=== PATIENT | female | born 1995 | race Caucasian/White ===

== ENCOUNTER 2020-11-05 18:36 | Emergency (ER) | payer SELFPAY ==
[2020-11-05 20:16] LABS: BILIRUBIN NEGATIVE (NEGATIVE); BLOOD NEGATIVE Ery/uL (NEGATIVE); CLARITY CLEAR (CLEAR); COLOR YELLOW (YELLOW); GLUCOSE (U) NORMAL (NORMAL); LEUKOCYTES NEGATIVE Leu/uL (NEGATIVE); NITRITE NEGATIVE (NEGATIVE); PROTEIN NEGATIVE (NEGATIVE); SPECIFIC GRAVITY 1.015 (1.001-1.030); UROBILINOGEN 0.2 mg/dL (0.2-1.0); pH 6.5 (5.0-9.0)
[2020-11-05 20:33] LABS: BASOPHIL 0.4 % (0-2); EOSINOPHIL 1.1 % (0-5); HCT 44.2 % (37.0-47.0); HGB 14.8 g/dl (12.5-16.0); LYMPHOCYTE 18.2 % (15-48); MCH 30.7 pg (25.0-31.0); MCHC 33.5 g/dL (32.0-36.0); MCV 91.7 fL (78.0-100.0); MONOCYTE 7.2 % (0-12); NEUTROPHIL 72.7 % (41-80); NRBC 0; PLT 240 K/uL (150-400); RBC 4.82 M/uL (4.20-5.40); RDW 12.4 % (11.5-14.0); WBC 15.8 K/uL (4.0-10.5)
[2020-11-05 20:51] LABS: ALBUMIN 3.8 g/dL (3.4-5.0); BILIRUBIN - TOTAL 0.2 mg/dL (0.2-1.0); BUN/CREAT RATIO (CALC) 7.9 RATIO; CREATININE 0.63 mg/dL (0.51-0.95); GLOBULIN (CALCULATION) 3.9 g/dL; POTASSIUM 3.6 mmol/L (3.5-5.1); TOTAL PROTEIN 7.7 g/dL (6.4-8.2)
== END 2020-11-05 21:43 | disposition home or self-care (01) ==
LOC: FER 18:36
PROVIDERS: Emergency Medicine; Nurse Practitioner Family
DX: O26.891 Other specified pregnancy related conditions, first trimester (principal); M54.5 Low back pain; R11.0 Nausea; R10.84 Generalized abdominal pain; O99.511 Diseases of the respiratory system complicating pregnancy, first trimester; J45.909 Unspecified asthma, uncomplicated; O99.331 Smoking (tobacco) complicating pregnancy, first trimester; F17.210 Nicotine dependence, cigarettes, uncomplicated; Z3A.01 Less than 8 weeks gestation of pregnancy
CPT/HCPCS: 36415; 80053; 81003; 84702; 85025; 99284; J7030

== ENCOUNTER 2021-01-24 16:00 | Emergency (ER) | payer OTHER ==
[2021-01-24 17:15] LABS: BILIRUBIN NEGATIVE (NEGATIVE); BLOOD NEGATIVE Ery/uL (NEGATIVE); CLARITY CLEAR (CLEAR); COLOR YELLOW (YELLOW); GLUCOSE (U) NORMAL (NORMAL); LEUKOCYTES NEGATIVE Leu/uL (NEGATIVE); NITRITE NEGATIVE (NEGATIVE); PROTEIN NEGATIVE (NEGATIVE); UROBILINOGEN 0.2 mg/dL (0.2-1.0)
== END 2021-01-24 17:49 | disposition home or self-care (01) ==
LOC: FER 16:00
PROVIDERS: Emergency Medicine
DX: O99.891 Other specified diseases and conditions complicating pregnancy (principal); M54.5 Low back pain; O99.212 Obesity complicating pregnancy, second trimester; Z87.891 Personal history of nicotine dependence; Z3A.18 18 weeks gestation of pregnancy
CPT/HCPCS: 81003; 99283

== ENCOUNTER 2021-06-21 16:49 | Inpatient (IN) | payer OTHER ==
[~2021-06-21] VITALS: Ht 160 cm; Wt 92.5 kg
[2021-06-21 21:08] LABS: HGB 11.5 g/dl (12.5-16.0); MCH 30.5 pg (25.0-31.0); MCHC 34.8 g/dL (32.0-36.0); MCV 87.5 fL (78.0-100.0); MPV 11.9 fL (6.0-9.5); RBC 3.77 M/uL (4.20-5.40); RDW 12.4 % (11.5-14.0)
[2021-06-21 22:00] LABS: BILIRUBIN NEGATIVE (NEGATIVE); BLOOD NEGATIVE Ery/uL (NEGATIVE); CLARITY CLEAR (CLEAR); COLOR YELLOW (YELLOW); GLUCOSE (U) NORMAL (NORMAL); LEUKOCYTES NEGATIVE Leu/uL (NEGATIVE); NITRITE NEGATIVE (NEGATIVE); PROTEIN NEGATIVE (NEGATIVE); UROBILINOGEN 0.2 mg/dL (0.2-1.0)
[2021-06-21 22:06] LABS: AMPHETAMINES NEGATIVE (NEGATIVE); BARBITURATES NEGATIVE (NEGATIVE); ECSTASY (MDMA) NEGATIVE (NEGATIVE); MARIJUANA (THC) NEGATIVE (NEGATIVE); METHADONE NEGATIVE (NEGATIVE); OPIATES NEGATIVE (NEGATIVE); OXYCODONE NEGATIVE (NEGATIVE)
[2021-06-21 22:44] LABS: ALBUMIN 2.8 g/dL (3.4-5.0); BILIRUBIN - TOTAL 0.3 mg/dL (0.2-1.0); BUN/CREAT RATIO (CALC) 5.7 RATIO; CREATININE 0.53 mg/dL (0.51-0.95); FT4 (FREE T4) 0.9 ng/dL (0.76-1.46); GLOBULIN (CALCULATION) 3.8 g/dL; POTASSIUM 2.9 mmol/L (3.5-5.1); TOTAL PROTEIN 6.6 g/dL (6.4-8.2); URIC ACID 3.6 mg/dL (2.6-6.2)
[2021-06-21 23:33] LABS: PROTEIN:CREATININE 0.23 RATIO; URINE CREATININE 37.77 mg/dL (29.00-226.00)
[2021-06-23 06:02] LABS: HCT 31.6 % (37.0-47.0); HGB 10.8 g/dl (12.5-16.0); MCH 30.2 pg (25.0-31.0); MCHC 34.2 g/dL (32.0-36.0); MCV 88.3 fL (78.0-100.0); MPV 11.6 fL (6.0-9.5); RBC 3.58 M/uL (4.20-5.40); RDW 12.5 % (11.5-14.0); WBC 12.4 K/uL (4.0-10.5)
== END 2021-06-24 14:00 | disposition home or self-care (01) | DRG 805 ==
LOC: FOB 16:49
PROVIDERS: ADMIT Obstetrics & Gynecology
PROC: 10E0XZZ Delivery of Products of Conception, External Approach (ICD-10-PCS; principal; 2021-06-22)
PROC: 10907ZC Drainage of Amniotic Fluid, Therapeutic from Products of Conception, Via Natural or Artificial Opening (ICD-10-PCS; 2021-06-22)
PROC: 3E0P7VZ Introduction of Hormone into Female Reproductive, Via Natural or Artificial Opening (ICD-10-PCS; 2021-06-22)
DX: O99.214 Obesity complicating childbirth (principal); O41.1030 Infection of amniotic sac and membranes, unspecified, third trimester, not applicable or unspecified; Z37.0 Single live birth; D62 Acute posthemorrhagic anemia; Z3A.39 39 weeks gestation of pregnancy; O99.03 Anemia complicating the puerperium; Z20.822 Contact with and (suspected) exposure to COVID-19; R03.0 Elevated blood-pressure reading, without diagnosis of hypertension; O69.81X0 Labor and delivery complicated by cord around neck, without compression, not applicable or unspecified; J45.909 Unspecified asthma, uncomplicated; O99.324 Drug use complicating childbirth; O99.52 Diseases of the respiratory system complicating childbirth; O99.334 Smoking (tobacco) complicating childbirth; F17.200 Nicotine dependence, unspecified, uncomplicated; F12.90 Cannabis use, unspecified, uncomplicated
CPT/HCPCS: 36415; 80053; 80305; 81003; 82570; 83615; 84156; 84439; 84443; 84550; 86850; 86900; 86901; J2300; J2405; J7120; U0002